=== PATIENT | female | born 1975 | race African-American/Black ===

== ENCOUNTER 2023-05-27 15:11 | Emergency (ER) | payer OTHER ==
[2023-05-27 15:27] VITALS: RESP 16; TEMP 98.7; BMI 26.7
[2023-05-27] MEDS ORDERED: ACETAMINOPHEN 1000 MG/100 ML BAG IVPB ONE (15:40)
[2023-05-27] MEDS ORDERED: KETOROLAC TROMETHAMINE 15 MG/ML VIAL IVPUSH ONE (15:40)
[2023-05-27] MEDS ORDERED: SODIUM CHLORIDE 0.9% 500 ML INFUS.BAG IV ONE (15:41)
[2023-05-27] MEDS ORDERED: KETOROLAC TROMETHAMINE 15 MG/ML VIAL ONE (16:08)
[2023-05-27] MEDS ORDERED: ACETAMINOPHEN INJECTION 100 ML IVPB ONE (16:08)
[2023-05-27 16:36] LABS: HEMATOCRIT 41.3 % (32.4-45.2); HEMOGLOBIN 13.4 G/dL (10.7-15.3); MCH 27.7 pg (25.7-33.7); MCHC 32.4 g/dl (32.0-36.0); MEAN CELL VOLUME 85.3 fl (80-96); PLATELET COUNT 264.5 10^3/uL (134-434); RBC 4.84 10^6/uL (3.60-5.2); RDW 14.7 % (11.6-15.6); WHITE BLOOD COUNT 4.7 10^3/uL (4.0-10.8)
[2023-05-27 16:46] LABS: EPITHELIAL CELLS 0-5 /hpf
[2023-05-27 16:58] LABS: ALBUMIN 4.7 g/dl (3.4-5.0); BILIRUBIN,TOTAL 0.5 mg/dl (0.2-1); CREATININE 0.7 mg/dl (0.6-1.3); POTASSIUM 3.5 mmol/L (3.5-5.1); TOT PROT 7.5 g/dl (6.4-8.2)
[2023-05-27 17:15] LABS: PLATELET ESTIMATE ADEQUATE
[2023-05-27 17:25] VITALS: BP 176/82; PULSE 88
== END 2023-05-27 17:37 | disposition home or self-care (01) ==
LOC: EDSEX → FER 15:11
PROC: 3E033NZ Introduction of Analgesics, Hypnotics, Sedatives into Peripheral Vein, Percutaneous Approach (ICD-10-PCS; principal; 2023-05-27)
PROC: 3E0333Z Introduction of Anti-inflammatory into Peripheral Vein, Percutaneous Approach (ICD-10-PCS; 2023-05-27)
DX: I10 Essential (primary) hypertension (principal); R51.9 Headache, unspecified
CPT/HCPCS: 36415; 70450-TC; 80053; 81003; 81015; 84703; 85027; 99284-25